=== PATIENT | female | born 1980 | race Caucasian/White ===

== ENCOUNTER 2021-06-14 14:43 | Emergency (ER) | payer OTHER ==
[~2021-06-14] VITALS: Ht 185.4 cm; Wt 77.1 kg
[2021-06-14] MEDS ORDERED: GABA100 PO (17:42)
[2021-06-14] MEDS ORDERED: MINIPRESS2 MG PO (17:43)
[2021-06-14] MEDS ORDERED: DESVENLAFAXINE100 MG PO (17:43)
[2021-06-14] MEDS ORDERED: OMEP20ER PO (17:43)
[2021-06-14] MEDS ORDERED: HYDHCL25 PO (17:43)
[2021-06-14] MEDS ORDERED: ABILIFY MYCITE10 M2 PO (17:44)
[2021-06-14] MEDS ORDERED: CYCL10 PO (17:44)
[2021-06-14] MEDS ORDERED: Bactrim Ds Tab1 EACH PO (18:33)
== END 2021-06-14 18:53 | disposition home or self-care (01) ==
LOC: ER 14:43
DX: M27.2 Inflammatory conditions of jaws (principal); Z79.899 Other long term (current) drug therapy; F17.290 Nicotine dependence, other tobacco product, uncomplicated
CPT/HCPCS: 10060; 99283-25; A9270

== ENCOUNTER 2021-11-24 13:25 | Inpatient (IN) | payer OTHER ==
[~2021-11-24] VITALS: Ht 185.4 cm; Wt 70.2 kg
[~2021-11-24 13:25] MED LIST: ABILIFY MYCITE10 M2 PO; Bactrim Ds Tab1 EACH PO; CYCL10 PO; DESVENLAFAXINE100 MG PO; GABA100 PO; HYDPAM100 PO; MINIPRESS2 MG PO; MULVITA PO; OMEP20ER PO; ONDA4 PO
[2021-11-24 14:13] LABS: BASOPHILS ABSOLUTE AUTO 0.07 K/mm3 (0.00-0.23); BASOPHILS PERCENT AUTO 1 % (0-2); EOSINOPHILS ABSOLUTE AUTO 0.01 K/mm3 (0.00-0.68); EOSINOPHILS PERCENT AUTO 0 % (0-6); Hematocrit 36.7 % (33.0-51.0); Hemoglobin 11.3 g/dL (11.5-16.0); IMMATURE GRAN ABSOLUTE AUTO 0.03 K/mm3 (0.00-0.10); IMMATURE GRAN PERCENT AUTO 0 % (0-1); LYMPHOCYTES ABSOLUTE AUTO 0.61 K/mm3 (0.84-5.20); LYMPHOCYTES PERCENT AUTO 6 % (21-46); MONOCYTES ABSOLUTE AUTO 0.74 K/mm3 (0.16-1.47); MONOCYTES PERCENT AUTO 8 % (4-13); Mean Corpuscular HGB 25.3 pg (26.0-34.0); Mean Corpuscular HGB Conc 30.8 g/dL (31.5-36.5); Mean Corpuscular Volume 82 fL (80-100); Mean Platelet Volume 9.8 fL (9.1-12.4); NEUTROPHILS ABSOLUTE AUTO 8.14 K/mm3 (1.96-9.15); NEUTROPHILS PERCENT AUTO 85 % (41-73); Platelet Count 416 K/mm3 (150-400); RDW Coefficient Variation 17.6 % (11.7-14.2); RDW Standard Deviation 52.8 fL (35.1-46.3); Red Blood Cell Count 4.47 M/mm3 (3.80-5.20)
[2021-11-24 14:17] LABS: Source, Urine Clean Catch
[2021-11-24 14:20] LABS: Appearance, Urine Hazy (Clear); Blood, Urine 1+ (Neg); Color, Urine Amber (P-Yellow); Glucose Qualitative, Urine Neg (Neg); Ketones, Urine 4+ (Neg); Leukocyte Esterase, Urine 1+ (Neg); Nitrite, Urine Neg (Neg); Protein, Urine 2+ (Neg); Specific Gravity, Urine 1.025 (1.003-1.022); Urobilinogen, Urine 3+ (Normal)
[2021-11-24 14:28] LABS: Bilirubin, Urine 1+ (Neg)
[2021-11-24 14:29] LABS: Squamous Epithelial Cells Few /hpf (Few)
[2021-11-24 14:30] LABS: Bacteria Mod /hpf; Hyaline Casts 0-2 /lpf (0-2)
[2021-11-24 14:34] LABS: Alanine Aminotransfer (ALT/SGP 129 U/L (12-78); Albumin, Blood 3.6 g/dL (3.4-5.0); Albumin/Globulin Ratio 0.9 (0.8-1.8); Alk Phos 142 U/L (50-136); Anion Gap 14 mmol/L (6-16); Aspartate Aminotrans (AST/SGOT 256 U/L (12-37); Bilirubin, Total 2.3 mg/dL (0.1-1.0); Blood Urea Nitrogen 6 mg/dL (8-24); Bun/Creatinine Ratio 14.2 (12.0-20.0); CO2, Blood 26 mmol/L (21-32); Calcium, Blood 9.1 mg/dL (8.5-10.1); Chloride, Blood 98 mmol/L (98-108); Creatinine, Blood 0.42 mg/dL (0.40-1.00); Globulin, Blood 3.9 g/dL (2.2-4.0); Glomerular Filtration Rate >60 (60-); Glucose, Blood 158 mg/dL (70-99); Potassium, Blood 3.4 mmol/L (3.5-5.5); Sodium, Blood 138 mmol/L (136-145); Total Protein, Blood 7.5 g/dL (6.4-8.2)
[2021-11-25 05:53] LABS: Alanine Aminotransfer (ALT/SGP 83 U/L (12-78); Albumin, Blood 2.6 g/dL (3.4-5.0); Albumin/Globulin Ratio 0.7 (0.8-1.8); Alk Phos 101 U/L (50-136); Anion Gap 8 mmol/L (6-16); Aspartate Aminotrans (AST/SGOT 114 U/L (12-37); Bilirubin, Total 1.6 mg/dL (0.1-1.0); Blood Urea Nitrogen 5 mg/dL (8-24); Bun/Creatinine Ratio 11.1 (12.0-20.0); CO2, Blood 29 mmol/L (21-32); Calcium, Blood 8.3 mg/dL (8.5-10.1); Chloride, Blood 101 mmol/L (98-108); Creatinine, Blood 0.45 mg/dL (0.40-1.00); Globulin, Blood 3.5 g/dL (2.2-4.0); Glomerular Filtration Rate >60 (60-); Glucose, Blood 89 mg/dL (70-99); Potassium, Blood 3.4 mmol/L (3.5-5.5); Sodium, Blood 138 mmol/L (136-145); Total Protein, Blood 6.1 g/dL (6.4-8.2); Triglycerides 67 mg/dL (30-160)
--- NOTE | 2021-11-25 06:18 | NUR ---
TRANSITION PROGRAM MANAGER SUMMARY/ ADMISSION PATIENT CAME FROM THE ED, ALERT AND ORIENTED. SHE WAS KEPT COMFORTABLE IN BED. ASSESSMENT DID NOT REVEAL ANY SKIN BREAKDOWN, SHE WAS HAVING PAIN BUT WAS GIVEN HER PRN MED, SHE WAS NAUSEOUS AND WAS VOMITING HER MEDS WERE ALSO ADMINISTERED. ASSESSMENTS CHARTED. SHE WAS KEPT COMFORTABLE, WILL CONTINUE TO MONITOR HER.
--- NOTE | 2021-11-25 17:03 | NUR ---
PT AOX4 AND COOPERATIVE OF CARE. PT DOING BETTER WITH PAIN CONTROL TREATED PER EMAR. PT INDEPENDENT IN ROOM AND WILL CALL APPROPRIATELY. CALL LIGHT WITHIN REACH WILL CONTINUE TO MONITOR.
--- NOTE | 2021-11-26 04:07 | NUR ---
SHIFT SUMMARY NO ACUTE CHANGES IN PT CONDITION. PT CONTINUES TO HAVE EPIGASTRIC PAIN, WHICH IS MEDICATED PER EMAR. PT ALSO COMPLAINS OF MILD NAUSEA, WHICH WAS ALSO MEDICATED PER EMAR. CWA BEING DONE EVERY 4 HOURS. LAST CWA WAS A 5. CALL LIGHT IS WITHIN REACH. PT WILL CONTINUE TO BE MONITORED.
[2021-11-26 06:47] LABS: Alanine Aminotransfer (ALT/SGP 71 U/L (12-78); Albumin, Blood 2.6 g/dL (3.4-5.0); Albumin/Globulin Ratio 0.9 (0.8-1.8); Alk Phos 95 U/L (50-136); Anion Gap 6 mmol/L (6-16); Aspartate Aminotrans (AST/SGOT 99 U/L (12-37); Bilirubin, Total 1.3 mg/dL (0.1-1.0); Blood Urea Nitrogen 1 mg/dL (8-24); Bun/Creatinine Ratio 2.2 (12.0-20.0); CO2, Blood 29 mmol/L (21-32); Calcium, Blood 8.4 mg/dL (8.5-10.1); Chloride, Blood 106 mmol/L (98-108); Creatinine, Blood 0.45 mg/dL (0.40-1.00); Globulin, Blood 2.9 g/dL (2.2-4.0); Glomerular Filtration Rate >60 (60-); Glucose, Blood 76 mg/dL (70-99); Potassium, Blood 3.7 mmol/L (3.5-5.5); Sodium, Blood 141 mmol/L (136-145); Total Protein, Blood 5.5 g/dL (6.4-8.2)
--- NOTE | 2021-11-26 18:18 | NUR ---
SHIFT SUMMARY PT ADMITTED FOR PANCREATITIS AND REPORTS FEELING MUCH BETTER THIS SHIFT. THIS AM SHE HAD AN INSTANCE OF PAIN/NAUSEA THAT HAS SINCE RESOLVED. MEDICATED X1 PER EMR. NEGATIVE FOR CIWA. HAS BEEN TOLERATING ORAL INTAKE WELL AND WILL POSSIBLY DC HOME TOMORROW. VSS. WILL REPORT TO GOMEZ NAVARRETE.
--- NOTE | 2021-11-27 04:14 | NUR ---
SHIFT SUMMARY NO ACUTE CHANGES IN PT CONDITION. MEDICATED FOR PAIN AND NAUSEA PER EMAR. PT STS SHE STARTED HER PERIOD AND WAS GIVEN SUPPLIES. PT EATING BETTER TODAY AND GIVEN SOME SNACK EARLIER IN THE EVENING. PT ON LOW FAT DIET. PT INDEPENDENT IN ROOM. IV R ARM. CALL LIGHT WITHIN REACH AND WILL CONTINUE TO MONITOR.
[2021-11-27] MEDS ORDERED: VENL150ER PO (10:32)
[2021-11-27] MEDS ORDERED: OXAYDO5 M1 PO (10:34)
[2021-11-27] MEDS ORDERED: Acetaminophen650 M1 PO (10:34)
[2021-11-27] MEDS ORDERED: PROM25 PO (10:34)
--- NOTE | 2021-11-27 11:02 | NUR ---
PT DISCHARGE DC INSTRUCTIONS REVIEWED WITH PT- PT VERB UNDERSTANDING OF MEDS, FOLLOW UP, DIET, ACTIVITY. NEW RX FAXED TO [facility] PER PT REQUEST.
--- NOTE | 2021-11-27 11:41 | NUR ---
DISCHARGE NOTE- PT WAS GIVEN DISCHARGE INSTRUCTIONS AND IV DC'D BY OUTSOLE LEVELERROSALBA DIMAS. PT ESCORTED OUT BY REGULATORY ADMINISTRATOR, PT DECLINED W/C AND WALKED OUT WITH STAFF GUIDANCE.
== END 2021-11-27 11:16 | disposition home or self-care (01) | DRG 440 ==
LOC: ER 13:25 → ERHOLD 18:11 → MEDS 21:10
PROVIDERS: Internal Medicine; Physician Assistant; ADMIT Hospitalist
DX: K85.20 Alcohol induced acute pancreatitis without necrosis or infection (principal); F10.20 Alcohol dependence, uncomplicated; F43.12 Post-traumatic stress disorder, chronic; F32.9 Major depressive disorder, single episode, unspecified; F41.9 Anxiety disorder, unspecified; E87.6 Hypokalemia; N83.202 Unspecified ovarian cyst, left side; K76.0 Fatty (change of) liver, not elsewhere classified; D50.9 Iron deficiency anemia, unspecified; K21.9 Gastro-esophageal reflux disease without esophagitis; Z79.899 Other long term (current) drug therapy; Z71.41 Alcohol abuse counseling and surveillance of alcoholic
CPT/HCPCS: 36415; 74176; 76705; 80053; 81001; 83690; 83735; 84478; 85025; 87086; 93005; 93010; 96374; 96375; 96376; 99285-25; A9270; C9113; J0780; J1170; J1200; J1650; J2405; J3480; J7030; J7120

== ENCOUNTER 2021-12-04 23:47 | Emergency (ER) | payer OTHER ==
[~2021-12-04] VITALS: Ht 185.4 cm; Wt 77.1 kg
[~2021-12-04 23:47] MED LIST changes: +Acetaminophen650 M1 PO; +OXAYDO5 M1 PO; +PROM25 PO; +VENL150ER PO
[2021-12-05] MEDS ORDERED: DESVENLAFAXINE100 M3 PO (00:25)
[2021-12-05 00:27] LABS: BASOPHILS ABSOLUTE AUTO 0.12 K/mm3 (0.00-0.23); BASOPHILS PERCENT AUTO 2 % (0-2); EOSINOPHILS ABSOLUTE AUTO 0.22 K/mm3 (0.00-0.68); EOSINOPHILS PERCENT AUTO 4 % (0-6); Hematocrit 36.8 % (33.0-51.0); Hemoglobin 11.3 g/dL (11.5-16.0); IMMATURE GRAN ABSOLUTE AUTO 0.03 K/mm3 (0.00-0.10); IMMATURE GRAN PERCENT AUTO 1 % (0-1); LYMPHOCYTES ABSOLUTE AUTO 1.37 K/mm3 (0.84-5.20); LYMPHOCYTES PERCENT AUTO 22 % (21-46); MONOCYTES PERCENT AUTO 11 % (4-13); Mean Corpuscular HGB 25.5 pg (26.0-34.0); Mean Corpuscular HGB Conc 30.7 g/dL (31.5-36.5); Mean Corpuscular Volume 83 fL (80-100); Mean Platelet Volume 10.2 fL (9.1-12.4); NEUTROPHILS PERCENT AUTO 62 % (41-73); Platelet Count 565 K/mm3 (150-400); RDW Coefficient Variation 17.1 % (11.7-14.2); RDW Standard Deviation 51.8 fL (35.1-46.3); Red Blood Cell Count 4.43 M/mm3 (3.80-5.20); White Blood Cell Count 6.34 K/mm3 (4.00-11.30)
[2021-12-05 01:08] LABS: Alanine Aminotransfer (ALT/SGP 120 U/L (12-78); Albumin, Blood 3.6 g/dL (3.4-5.0); Albumin/Globulin Ratio 0.9 (0.8-1.8); Alk Phos 156 U/L (50-136); Anion Gap 13 mmol/L (6-16); Aspartate Aminotrans (AST/SGOT 230 U/L (12-37); Bilirubin, Total 0.8 mg/dL (0.1-1.0); Blood Urea Nitrogen 4 mg/dL (8-24); Bun/Creatinine Ratio 8.5 (12.0-20.0); CO2, Blood 24 mmol/L (21-32); Calcium, Blood 9.2 mg/dL (8.5-10.1); Chloride, Blood 103 mmol/L (98-108); Creatinine, Blood 0.47 mg/dL (0.40-1.00); Globulin, Blood 3.9 g/dL (2.2-4.0); Glomerular Filtration Rate >60 (60-); Glucose, Blood 129 mg/dL (70-99); Potassium, Blood 3.5 mmol/L (3.5-5.5); Sodium, Blood 140 mmol/L (136-145); Total Protein, Blood 7.5 g/dL (6.4-8.2)
== END 2021-12-05 02:20 | disposition home or self-care (01) ==
LOC: ER 23:47
PROVIDERS: Physician Assistant
DX: K85.90 Acute pancreatitis without necrosis or infection, unspecified (principal); F10.10 Alcohol abuse, uncomplicated; Z79.899 Other long term (current) drug therapy; F17.290 Nicotine dependence, other tobacco product, uncomplicated
CPT/HCPCS: 36415; 80053; 83690; 85025; 96374; 96375; 99284; A9270; J0780; J1170; J1200; J2550; J7030

== ENCOUNTER 2021-12-15 11:02 | Inpatient (IN) | payer OTHER ==
[~2021-12-15] VITALS: Ht 185.4 cm; Wt 68.8 kg
[~2021-12-15 11:02] MED LIST changes: +DESVENLAFAXINE100 M3 PO
[2021-12-15 11:40] LABS: BASOPHILS ABSOLUTE AUTO 0.08 K/mm3 (0.00-0.23); BASOPHILS PERCENT AUTO 1 % (0-2); EOSINOPHILS ABSOLUTE AUTO 0.16 K/mm3 (0.00-0.68); EOSINOPHILS PERCENT AUTO 2 % (0-6); Hematocrit 37.8 % (33.0-51.0); Hemoglobin 11.5 g/dL (11.5-16.0); IMMATURE GRAN ABSOLUTE AUTO 0.02 K/mm3 (0.00-0.10); IMMATURE GRAN PERCENT AUTO 0 % (0-1); LYMPHOCYTES ABSOLUTE AUTO 1.06 K/mm3 (0.84-5.20); LYMPHOCYTES PERCENT AUTO 12 % (21-46); MONOCYTES ABSOLUTE AUTO 0.66 K/mm3 (0.16-1.47); MONOCYTES PERCENT AUTO 7 % (4-13); Mean Corpuscular HGB Conc 30.4 g/dL (31.5-36.5); Mean Corpuscular Volume 82 fL (80-100); Mean Platelet Volume 10.4 fL (9.1-12.4); NEUTROPHILS ABSOLUTE AUTO 7.19 K/mm3 (1.96-9.15); NEUTROPHILS PERCENT AUTO 78 % (41-73); Platelet Count 626 K/mm3 (150-400); RDW Coefficient Variation 15.9 % (11.7-14.2); RDW Standard Deviation 47.5 fL (35.1-46.3); White Blood Cell Count 9.17 K/mm3 (4.00-11.30)
[2021-12-15 11:58] LABS: Alanine Aminotransfer (ALT/SGP 69 U/L (12-78); Albumin, Blood 3.6 g/dL (3.4-5.0); Alk Phos 117 U/L (50-136); Anion Gap 7 mmol/L (6-16); Aspartate Aminotrans (AST/SGOT 90 U/L (12-37); Bilirubin, Total 0.9 mg/dL (0.1-1.0); Blood Urea Nitrogen 6 mg/dL (8-24); Bun/Creatinine Ratio 14.8 (12.0-20.0); CO2, Blood 29 mmol/L (21-32); Calcium, Blood 8.8 mg/dL (8.5-10.1); Chloride, Blood 104 mmol/L (98-108); Creatinine, Blood 0.41 mg/dL (0.40-1.00); Globulin, Blood 3.6 g/dL (2.2-4.0); Glomerular Filtration Rate >60 (60-); Glucose, Blood 166 mg/dL (70-99); Potassium, Blood 3.5 mmol/L (3.5-5.5); Sodium, Blood 140 mmol/L (136-145); Total Protein, Blood 7.2 g/dL (6.4-8.2)
--- NOTE | 2021-12-15 16:47 | NUR ---
SHIFT SUMMARY PATIENT ADMITTED FROM ER AT 1415. PATIENT MEDICATED X1 FOR ABDOMINAL PAIN. PATIENT MEDICATED X1 FOR NAUSEA. PATIENT DENIES SHORTNESS OF BREATH. PATIENT IS A SBA TO THE BATHROOM. PATIENT IS NPO. PATIENT 1430 CIWA WAS 11. PATIENT MEDICATED PER EMAR. PATIENTS MOM VISITED IN AFTERNOON. PATIENT HAS BEEN SLEEPING ON AND OFF SINCE ADMISSION. PATIENT IS PLEASANT AND COOPERATIVE [facility].
--- NOTE | 2021-12-16 05:10 | NUR ---
SHIFT SUMMARY 41 YR F ADMITTED ON 12/15/21 FOR ALCOHOLIC PANCREATITIS. FULL CODE. SHE IS CURRENTLY HAVING CIWA'S Q4H AND THE LAST TWO AT 2230 AND 0250 WERE 3 AND 5. PT C/O OF PAIN IN HER ABDOMEN AND SHE IS SHOWING SIGNS OF ALCOHOL WITHDRAWL. HER SPEECH IS BECOMING SLURRED BUT SHE IS ALERT AND ORIENTED X 4. SHE ALSO C/O NAUSEA AND IS BEING GIVEN ZOFRAN AND PHENEGRAN. SHE EXPRESSED THAT SHE WANTS TO GET BETTER AND THAT SHE KNOWS SHE "DID THIS TO MYSELF".
[2021-12-16 05:27] LABS: BASOPHILS ABSOLUTE AUTO 0.04 K/mm3 (0.00-0.23); BASOPHILS PERCENT AUTO 0 % (0-2); EOSINOPHILS ABSOLUTE AUTO 0.18 K/mm3 (0.00-0.68); EOSINOPHILS PERCENT AUTO 2 % (0-6); Hematocrit 31.9 % (33.0-51.0); Hemoglobin 9.5 g/dL (11.5-16.0); IMMATURE GRAN ABSOLUTE AUTO 0.03 K/mm3 (0.00-0.10); IMMATURE GRAN PERCENT AUTO 0 % (0-1); LYMPHOCYTES ABSOLUTE AUTO 0.67 K/mm3 (0.84-5.20); LYMPHOCYTES PERCENT AUTO 7 % (21-46); MONOCYTES ABSOLUTE AUTO 0.68 K/mm3 (0.16-1.47); MONOCYTES PERCENT AUTO 7 % (4-13); Mean Corpuscular HGB 24.9 pg (26.0-34.0); Mean Corpuscular HGB Conc 29.8 g/dL (31.5-36.5); Mean Corpuscular Volume 84 fL (80-100); Mean Platelet Volume 10.4 fL (9.1-12.4); NEUTROPHILS PERCENT AUTO 83 % (41-73); Platelet Count 387 K/mm3 (150-400); RDW Coefficient Variation 15.9 % (11.7-14.2); RDW Standard Deviation 48.2 fL (35.1-46.3); Red Blood Cell Count 3.82 M/mm3 (3.80-5.20)
[2021-12-16 05:50] LABS: Anion Gap 7 mmol/L (6-16); Blood Urea Nitrogen 4 mg/dL (8-24); CO2, Blood 27 mmol/L (21-32); Calcium, Blood 7.9 mg/dL (8.5-10.1); Chloride, Blood 106 mmol/L (98-108); Creatinine, Blood 0.33 mg/dL (0.40-1.00); Glomerular Filtration Rate >60 (60-); Glucose, Blood 120 mg/dL (70-99); Phosphorus, Blood 2.4 mg/dL (2.5-4.9); Sodium, Blood 140 mmol/L (136-145)
--- NOTE | 2021-12-16 18:14 | NUR ---
PT VERY SLEEPY T/O THE SHIFT, SHE IS A/O WHEN AWAKE, CIWA'S HAVE BEEN AROUND [address] SUERO ATAPRIL NOT TO BE GIVEN UNLESS CIWA'S >8. K-PHOS RIDER GIVEN THIS MORNING, NO ACUTE CHANGES NOTED THIS SHIFT, WILL CONTINUE TO MONITOR AND REPORT TO ONCOMING RN.
--- NOTE | 2021-12-17 01:20 | NUR ---
2214: PT WOKE UP FEELING NAUSEATED, VOMITED 100 MLS CLEAR. REPORTS FEELING ANXIOUS WELL. PHENEGRAN GIVEN VIA IV. PT ALSO STS THAT SHE'S IN PAIN 06/08, ABD REGION. 1MG DILAUDID PO GIVEN. PT REQUESTING FOR IV PAIN MED AT THIS TIME DUE TO N/V SX. CALLED AND SPOKE AIDE GUIDO AT 75ML/HR ORDERED AND CHANGED DILAUDID TO FENTANYL 25-50MCG Q4 PRN. NEW IV WAS PLACED WELL ON LEFT FOREARM, DC IV ON LEFT AC DUE TO REDNESS AND PAIN. CALL LIGHT WITHIN REACH.
--- NOTE | 2021-12-17 01:25 | NUR ---
0015: PT STILL FEELS NAUSEATED. ADMINSTERED ZOFRAN VIA IV. NO VOMITING AT THIS TIME. PT WENT BACK TO SLEEP AFTER. CALL LIGHT WITHIN REACH.
--- NOTE | 2021-12-17 03:45 | NUR ---
SHIFT SUMMARY PT ADMITTED FOR ALCO PANCREATITIS. PT REPORTS NAUSEA AND VOMITED ONCE T/O SHIFT. SHE ALSO C/O OF ABD PAIN. NAUSEA MANAGED WITH PHENEGRAN AND ZOFRAN. PAIN MANAGED WITH DILAUDID AT THE BEGINNING OF SHIFT BUT BECAUSE PT WAS VOMITING, SHE REQUESTED AN IV PAIN MED. CALLED DR. NULL, DILAUDID WAS CHANGED TO FENTANYL AND AN ORDER OF NS 75MLS/HR X1. PT AOX4. NEW IV WAS ALSO PLACED ON L FOREARM, DC IV ON L AC DUE TO PAIN AND REDNESS. CALL LIGHT WITHIN REACH. WILL PROVIDE REPORT TO ONCOMING NURSE.
[2021-12-17 05:32] LABS: BASOPHILS ABSOLUTE AUTO 0.05 K/mm3 (0.00-0.23); BASOPHILS PERCENT AUTO 1 % (0-2); EOSINOPHILS ABSOLUTE AUTO 0.36 K/mm3 (0.00-0.68); EOSINOPHILS PERCENT AUTO 4 % (0-6); Hemoglobin 9.2 g/dL (11.5-16.0); IMMATURE GRAN ABSOLUTE AUTO 0.05 K/mm3 (0.00-0.10); IMMATURE GRAN PERCENT AUTO 1 % (0-1); LYMPHOCYTES ABSOLUTE AUTO 1.26 K/mm3 (0.84-5.20); LYMPHOCYTES PERCENT AUTO 12 % (21-46); MONOCYTES ABSOLUTE AUTO 0.85 K/mm3 (0.16-1.47); MONOCYTES PERCENT AUTO 8 % (4-13); Mean Corpuscular HGB 25.4 pg (26.0-34.0); Mean Corpuscular HGB Conc 29.7 g/dL (31.5-36.5); Mean Corpuscular Volume 86 fL (80-100); Mean Platelet Volume 11.1 fL (9.1-12.4); NEUTROPHILS ABSOLUTE AUTO 7.85 K/mm3 (1.96-9.15); NEUTROPHILS PERCENT AUTO 75 % (41-73); Platelet Count 398 K/mm3 (150-400); RDW Coefficient Variation 16.1 % (11.7-14.2); RDW Standard Deviation 49.6 fL (35.1-46.3); Red Blood Cell Count 3.62 M/mm3 (3.80-5.20); White Blood Cell Count 10.42 K/mm3 (4.00-11.30)
[2021-12-17 05:57] LABS: Alanine Aminotransfer (ALT/SGP 37 U/L (12-78); Albumin, Blood 2.6 g/dL (3.4-5.0); Albumin/Globulin Ratio 0.9 (0.8-1.8); Alk Phos 97 U/L (50-136); Anion Gap 7 mmol/L (6-16); Aspartate Aminotrans (AST/SGOT 50 U/L (12-37); Bilirubin, Total 1.3 mg/dL (0.1-1.0); Blood Urea Nitrogen 3 mg/dL (8-24); CO2, Blood 30 mmol/L (21-32); Calcium, Blood 8.1 mg/dL (8.5-10.1); Chloride, Blood 102 mmol/L (98-108); Creatinine, Blood 0.43 mg/dL (0.40-1.00); Glomerular Filtration Rate >60 (60-); Glucose, Blood 92 mg/dL (70-99); Phosphorus, Blood 2.9 mg/dL (2.5-4.9); Potassium, Blood 3.6 mmol/L (3.5-5.5); Sodium, Blood 139 mmol/L (136-145); Total Protein, Blood 5.6 g/dL (6.4-8.2)
--- NOTE | 2021-12-17 18:28 | NUR ---
PT DIET ADVANCED TO CLEAR LIQUIDS, TOLERATING WITH NAUSEA MEDS, DIET CAN BE ADVANCED TOLERATED TO LOW FAT, LOW FIBER. NO ACUTE CHANGES NOTED THIS SHIFT, WILL CONTINUE TO MONITOR AND REPORT TO ONCOMING RN.
[2021-12-18 06:03] LABS: Alanine Aminotransfer (ALT/SGP 36 U/L (12-78); Albumin, Blood 2.6 g/dL (3.4-5.0); Albumin/Globulin Ratio 0.9 (0.8-1.8); Alk Phos 95 U/L (50-136); Anion Gap 5 mmol/L (6-16); Aspartate Aminotrans (AST/SGOT 55 U/L (12-37); Bilirubin, Total 0.8 mg/dL (0.1-1.0); Blood Urea Nitrogen 3 mg/dL (8-24); Bun/Creatinine Ratio 7.5 (12.0-20.0); CO2, Blood 28 mmol/L (21-32); Calcium, Blood 7.7 mg/dL (8.5-10.1); Chloride, Blood 107 mmol/L (98-108); Glomerular Filtration Rate >60 (60-); Glucose, Blood 87 mg/dL (70-99); Potassium, Blood 3.3 mmol/L (3.5-5.5); Sodium, Blood 140 mmol/L (136-145); Total Protein, Blood 5.6 g/dL (6.4-8.2)
--- NOTE | 2021-12-18 06:22 | NUR ---
SHIFT SUMMARY PT CONTINUES TO BE PAINFUL EVEN AFTER GIVEN MEDICATION. CALLED DR AND GOT ORDER FOR DILAUDID Q 6 IV FOR PAIN. MEDICATED SEVERAL TIMES PER EMAR. PT STS AFTER GETTING COMBINATION OF PAIN MEDICATION AND NAUSEA MEDICATION THAT SHE IS NOT IN SO MUCH PAIN. PT HAS FLUIDS RUNNING AT 75 HR. CALL LIGHT WITHIN REACH.
[2021-12-18] MEDS ORDERED: HYDROCODONE-AC1 EA10 PO (16:31)
[2021-12-18] MEDS ORDERED: ONDA4ODT MM (16:31)
[2021-12-18] MEDS ORDERED: POTA10T PO (16:32)
--- NOTE | 2021-12-18 17:57 | NUR ---
DISCHARGE INSTRUCTIONS COMPLETED AND DISCUSSED WITH PT EXPRESSING UNDERSTANDING. REPORTED LAST DOSE OF PAIN MED MOST EFFECTIVE WITH PAIN AFTER LFA IV NOTED TO BE INFILTRATED WITH REDNESS AND SWELLING. DID HAVE LESS NAUSEA AFTER EATING A SOLID LUNCH. SCRIPTS FAXED TO [facility]. TO [facility] VIA W/C. RHONDA FOUND IN LOCKED DRAWER AFTER SHE LEFT. CALLED HOME PHONE AND LEFT A MESSAGE.
== END 2021-12-18 17:35 | disposition home or self-care (01) | DRG 439 ==
LOC: ER 11:02 → ERHOLD 13:22 → MEDS 14:03
PROVIDERS: Emergency Medicine; Student in an Organized Health Care Education/Training Program; ADMIT Hospitalist
PROC: HZ2ZZZZ Detoxification Services for Substance Abuse Treatment (ICD-10-PCS; principal; 2021-12-15)
DX: K85.20 Alcohol induced acute pancreatitis without necrosis or infection (principal); F10.239 Alcohol dependence with withdrawal, unspecified; E87.6 Hypokalemia; E83.39 Other disorders of phosphorus metabolism; F12.90 Cannabis use, unspecified, uncomplicated; D50.9 Iron deficiency anemia, unspecified; K21.9 Gastro-esophageal reflux disease without esophagitis; F41.1 Generalized anxiety disorder; F32.9 Major depressive disorder, single episode, unspecified; Z28.21 Immunization not carried out because of patient refusal; F17.290 Nicotine dependence, other tobacco product, uncomplicated; Z79.899 Other long term (current) drug therapy
CPT/HCPCS: 36415; 80048; 80053; 83690; 83735; 84100; 85025; 96361; 96374; 96375; 99285-25; A9270; J1170; J1200; J1650; J1885; J2060; J2405; J2550; J3010; J3411; J3475; J7030; J7042; J7060

== ENCOUNTER 2022-03-25 14:22 | Emergency (ER) | payer OTHER ==
[~2022-03-25] VITALS: Ht 185.4 cm; Wt 65.8 kg
[~2022-03-25 14:22] MED LIST changes: +HYDROCODONE-AC1 EA10 PO; +ONDA4ODT MM; +POTA10T PO
[2022-03-25 15:41] LABS: BASOPHILS ABSOLUTE AUTO 0.04 K/mm3 (0.00-0.23); BASOPHILS PERCENT AUTO 0 % (0-2); EOSINOPHILS PERCENT AUTO 2 % (0-6); Hematocrit 32.6 % (33.0-51.0); Hemoglobin 9.2 g/dL (11.5-16.0); IMMATURE GRAN ABSOLUTE AUTO 0.04 K/mm3 (0.00-0.10); IMMATURE GRAN PERCENT AUTO 0 % (0-1); LYMPHOCYTES ABSOLUTE AUTO 0.98 K/mm3 (0.84-5.20); LYMPHOCYTES PERCENT AUTO 9 % (21-46); MONOCYTES ABSOLUTE AUTO 0.47 K/mm3 (0.16-1.47); MONOCYTES PERCENT AUTO 4 % (4-13); Mean Corpuscular HGB 20.7 pg (26.0-34.0); Mean Corpuscular HGB Conc 28.2 g/dL (31.5-36.5); Mean Corpuscular Volume 73 fL (80-100); NEUTROPHILS ABSOLUTE AUTO 8.99 K/mm3 (1.96-9.15); NEUTROPHILS PERCENT AUTO 84 % (41-73); Platelet Count 385 K/mm3 (150-400); RDW Coefficient Variation 17.6 % (11.7-14.2); RDW Standard Deviation 44.5 fL (35.1-46.3); Red Blood Cell Count 4.45 M/mm3 (3.80-5.20); White Blood Cell Count 10.72 K/mm3 (4.00-11.30)
[2022-03-25 15:43] LABS: Alanine Aminotransfer (ALT/SGP 26 U/L (12-78); Albumin, Blood 3.9 g/dL (3.4-5.0); Albumin/Globulin Ratio 0.9 (0.8-1.8); Alk Phos 82 U/L (50-136); Anion Gap 8 mmol/L (6-16); Aspartate Aminotrans (AST/SGOT 24 U/L (12-37); Blood Urea Nitrogen 6 mg/dL (8-24); Bun/Creatinine Ratio 12.2 (12.0-20.0); CO2, Blood 26 mmol/L (21-32); Calcium, Blood 9.2 mg/dL (8.5-10.1); Chloride, Blood 104 mmol/L (98-108); Creatinine, Blood 0.49 mg/dL (0.40-1.00); Globulin, Blood 4.4 g/dL (2.2-4.0); Glomerular Filtration Rate >60 (60-); Glucose, Blood 131 mg/dL (70-99); Potassium, Blood 3.6 mmol/L (3.5-5.5); Sodium, Blood 138 mmol/L (136-145); Total Protein, Blood 8.3 g/dL (6.4-8.2)
[2022-03-25 16:33] LABS: Source, Urine Clean Catch
[2022-03-25 16:38] LABS: Appearance, Urine Hazy (Clear); Blood, Urine Neg (Neg); Color, Urine Amber (P-Yellow); Glucose Qualitative, Urine Neg (Neg); Ketones, Urine 3+ (Neg); Leukocyte Esterase, Urine 1+ (Neg); Nitrite, Urine Neg (Neg); Protein, Urine 2+ (Neg); Specific Gravity, Urine 1.025 (1.003-1.022); Urobilinogen, Urine 3+ (Normal)
[2022-03-25] MEDS ORDERED: TRAZ150T57 PO (16:39)
[2022-03-25 17:48] LABS: Bilirubin, Urine 1+ (Neg)
[2022-03-25 17:53] LABS: Bacteria Many /hpf; Mucus Mod (0-Heavy); Red Blood Cells, Urine 0-2 /hpf (0-2); Squamous Epithelial Cells Many /hpf (Few)
[2022-03-25 17:54] LABS: Amorphous Light (0-Heavy); Hyaline Casts 0-2 /lpf (0-2)
[2022-03-25] MEDS ORDERED: ONDA4ODT MM (19:40)
[2022-03-25] MEDS ORDERED: Percocet 5-3251 EACH PO (19:40)
[2022-03-25] MEDS ORDERED: Phenergan25 M1 PO (19:48)
== END 2022-03-25 20:09 | disposition home or self-care (01) ==
LOC: ER 14:22
PROVIDERS: Physician Assistant
DX: K85.90 Acute pancreatitis without necrosis or infection, unspecified (principal); D64.9 Anemia, unspecified; F17.290 Nicotine dependence, other tobacco product, uncomplicated
CPT/HCPCS: 36415; 80053; 81001; 81025; 83690; 85025; A9270; J1170; J1885; J2405; J7030

== ENCOUNTER 2022-04-04 09:20 | Emergency (ER) | payer OTHER ==
[~2022-04-04] VITALS: Ht 185.4 cm; Wt 65.8 kg
[~2022-04-04 09:20] MED LIST changes: +Percocet 5-3251 EACH PO; +Phenergan25 M1 PO; +TRAZ150T57 PO
[2022-04-04 11:19] LABS: BASOPHILS ABSOLUTE AUTO 0.05 K/mm3 (0.00-0.23); BASOPHILS PERCENT AUTO 1 % (0-2); EOSINOPHILS ABSOLUTE AUTO 0.37 K/mm3 (0.00-0.68); EOSINOPHILS PERCENT AUTO 4 % (0-6); Hematocrit 28.4 % (33.0-51.0); IMMATURE GRAN ABSOLUTE AUTO 0.02 K/mm3 (0.00-0.10); IMMATURE GRAN PERCENT AUTO 0 % (0-1); LYMPHOCYTES ABSOLUTE AUTO 1.14 K/mm3 (0.84-5.20); LYMPHOCYTES PERCENT AUTO 11 % (21-46); MONOCYTES ABSOLUTE AUTO 0.83 K/mm3 (0.16-1.47); MONOCYTES PERCENT AUTO 8 % (4-13); Mean Corpuscular HGB 20.5 pg (26.0-34.0); Mean Corpuscular HGB Conc 28.2 g/dL (31.5-36.5); Mean Corpuscular Volume 73 fL (80-100); Mean Platelet Volume 10.8 fL (9.1-12.4); NEUTROPHILS ABSOLUTE AUTO 7.57 K/mm3 (1.96-9.15); NEUTROPHILS PERCENT AUTO 76 % (41-73); Platelet Count 488 K/mm3 (150-400); RDW Coefficient Variation 18.3 % (11.7-14.2); RDW Standard Deviation 46.7 fL (35.1-46.3); White Blood Cell Count 9.98 K/mm3 (4.00-11.30)
[2022-04-04 11:42] LABS: Alanine Aminotransfer (ALT/SGP 14 U/L (12-78); Albumin, Blood 3.3 g/dL (3.4-5.0); Albumin/Globulin Ratio 0.8 (0.8-1.8); Alk Phos 76 U/L (50-136); Anion Gap 5 mmol/L (6-16); Aspartate Aminotrans (AST/SGOT 17 U/L (12-37); Bilirubin, Total 0.7 mg/dL (0.1-1.0); Blood Urea Nitrogen 6 mg/dL (8-24); Bun/Creatinine Ratio 14.5 (12.0-20.0); CO2, Blood 27 mmol/L (21-32); Chloride, Blood 101 mmol/L (98-108); Creatinine, Blood 0.42 mg/dL (0.40-1.00); Globulin, Blood 3.9 g/dL (2.2-4.0); Glomerular Filtration Rate >60 (60-); Glucose, Blood 109 mg/dL (70-99); Magnesium, Blood 2.1 mg/dL (1.6-2.4); Potassium, Blood 4.3 mmol/L (3.5-5.5); Sodium, Blood 133 mmol/L (136-145); Total Protein, Blood 7.2 g/dL (6.4-8.2)
[2022-04-04] MEDS ORDERED: PHENERGAN25 MG PR (13:15)
[2022-04-04] MEDS ORDERED: ONDA4ODT SL (13:15)
[2022-04-04] MEDS ORDERED: Percocet 5-3251 EACH PO (13:15)
== END 2022-04-04 13:46 | disposition home or self-care (01) ==
LOC: ER 09:20
PROVIDERS: Physician Assistant
DX: K85.90 Acute pancreatitis without necrosis or infection, unspecified (principal); N83.202 Unspecified ovarian cyst, left side; N83.201 Unspecified ovarian cyst, right side; K59.00 Constipation, unspecified; Z79.899 Other long term (current) drug therapy; Z87.891 Personal history of nicotine dependence
CPT/HCPCS: 36415; 74177; 80053; 83690; 83735; 85025; J1170; J1790; J1885; J2405; J7120; Q9967

== ENCOUNTER 2022-04-23 05:28 | Inpatient (IN) | payer OTHER ==
[~2022-04-23] VITALS: Ht 185.4 cm; Wt 65.8 kg
[~2022-04-23 05:28] MED LIST changes: +ONDA4ODT SL; +PHENERGAN25 MG PR
[2022-04-23 06:12] LABS: BASOPHILS ABSOLUTE AUTO 0.08 K/mm3 (0.00-0.23); BASOPHILS PERCENT AUTO 0 % (0-2); EOSINOPHILS ABSOLUTE AUTO 1.16 K/mm3 (0.00-0.68); EOSINOPHILS PERCENT AUTO 6 % (0-6); Hematocrit 28.9 % (33.0-51.0); Hemoglobin 8.1 g/dL (11.5-16.0); IMMATURE GRAN PERCENT AUTO 1 % (0-1); LYMPHOCYTES PERCENT AUTO 10 % (21-46); MONOCYTES ABSOLUTE AUTO 1.43 K/mm3 (0.16-1.47); MONOCYTES PERCENT AUTO 7 % (4-13); Mean Corpuscular Volume 72 fL (80-100); Mean Platelet Volume 10.7 fL (9.1-12.4); NEUTROPHILS ABSOLUTE AUTO 14.74 K/mm3 (1.96-9.15); NEUTROPHILS PERCENT AUTO 76 % (41-73); Platelet Count 421 K/mm3 (150-400); RDW Coefficient Variation 18.4 % (11.7-14.2); RDW Standard Deviation 46.8 fL (35.1-46.3); Red Blood Cell Count 4.04 M/mm3 (3.80-5.20); White Blood Cell Count 19.51 K/mm3 (4.00-11.30)
[2022-04-23 06:26] LABS: Albumin, Blood 3.2 g/dL (3.4-5.0); Albumin/Globulin Ratio 0.9 (0.8-1.8); Bilirubin, Total 0.9 mg/dL (0.1-1.0); Bun/Creatinine Ratio 23.2 (12.0-20.0); Calcium, Blood 8.5 mg/dL (8.5-10.1); Creatinine, Blood 0.47 mg/dL (0.40-1.00); Globulin, Blood 3.7 g/dL (2.2-4.0); Potassium, Blood 3.7 mmol/L (3.5-5.5); Total Protein, Blood 6.9 g/dL (6.4-8.2)
[2022-04-23] MEDS ORDERED: GABAPENTIN600 MG PO (07:08)
[2022-04-23] MEDS ORDERED: OXYC5 PO (07:08)
--- NOTE | 2022-04-23 17:24 | NUR ---
DAYSHIFT SUMMARY Pt admitted for pancreatitis, arrived to medical unit at 1130. Pt N/V, severe abdominal pain. NPO w/ sips/ice chips ok per MD. Pt vomiting, stated that zofran was given & uneffective for her. Gave IV Reglan & Fentynal for N/V/pain. PRNs uneffective. Pt crying & vomiting, requested alternative for N/V. PRN oxycodone given, pt vomited after receiving dose. PRN IV Phenergan & Fentynal given, PRNs effective for N/V/pain control. D5W/KCL infusing in right/AC. PRNs given Q3-4H, pts pain controlled at this time. Vitals stable.
[2022-04-24 04:53] LABS: BASOPHILS ABSOLUTE AUTO 0.05 K/mm3 (0.00-0.23); BASOPHILS PERCENT AUTO 0 % (0-2); EOSINOPHILS ABSOLUTE AUTO 0.85 K/mm3 (0.00-0.68); EOSINOPHILS PERCENT AUTO 7 % (0-6); Hematocrit 24.3 % (33.0-51.0); Hemoglobin 6.7 g/dL (11.5-16.0); IMMATURE GRAN ABSOLUTE AUTO 0.02 K/mm3 (0.00-0.10); IMMATURE GRAN PERCENT AUTO 0 % (0-1); LYMPHOCYTES ABSOLUTE AUTO 1.92 K/mm3 (0.84-5.20); LYMPHOCYTES PERCENT AUTO 15 % (21-46); MONOCYTES ABSOLUTE AUTO 1.07 K/mm3 (0.16-1.47); MONOCYTES PERCENT AUTO 9 % (4-13); Mean Corpuscular HGB 19.9 pg (26.0-34.0); Mean Corpuscular HGB Conc 27.6 g/dL (31.5-36.5); Mean Corpuscular Volume 72 fL (80-100); Mean Platelet Volume 10.7 fL (9.1-12.4); NEUTROPHILS ABSOLUTE AUTO 8.67 K/mm3 (1.96-9.15); NEUTROPHILS PERCENT AUTO 69 % (41-73); Platelet Count 319 K/mm3 (150-400); RDW Coefficient Variation 18.7 % (11.7-14.2); Red Blood Cell Count 3.36 M/mm3 (3.80-5.20); White Blood Cell Count 12.58 K/mm3 (4.00-11.30)
[2022-04-24 05:15] LABS: Albumin, Blood 2.5 g/dL (3.4-5.0); Albumin/Globulin Ratio 0.8 (0.8-1.8); Bilirubin, Total 0.9 mg/dL (0.1-1.0); Bun/Creatinine Ratio 13.2 (12.0-20.0); Calcium, Blood 7.7 mg/dL (8.5-10.1); Creatinine, Blood 0.45 mg/dL (0.40-1.00); Globulin, Blood 3.1 g/dL (2.2-4.0); Potassium, Blood 3.9 mmol/L (3.5-5.5); Total Protein, Blood 5.6 g/dL (6.4-8.2)
--- NOTE | 2022-04-24 05:43 | NUR ---
41 year old Female with acute on chronic pancreatitis admitted yesterday with N V abd pain 07/09 that is persistant & radiated thru to upper back. Medicated multiple times for pain & nausea prevention. She has kpad & finds some relief with that. Vomiting & acute pain this AM PT has phenergan 12.5 mg & zofran with helpful effect & 50 mcg fentanyl with some short lived relief so oxycodone 5 mg po given. PT says she prefers dilaudid for pain control. NPO except ice chips & sips water.
[2022-04-24 14:18] LABS: Hematocrit 29.1 % (33.0-51.0); Hemoglobin 8.4 g/dL (11.5-16.0)
--- NOTE | 2022-04-24 18:24 | NUR ---
DAYSHIFT SUMMARY at bedside this am, pt reported constipation, hard stools, and bleeding/possible hemorroids. MD ordered guiac stool & miralax daily. This morning RBC 3.3, Hgb 6.7, Hct 24.3, MD ordered 1 unit PRBCs. Blood transfusion consent form signed & witnessed by this RN. Transfused blood, no s/sx of reaction ntoed, vitals stable. Pt reported feeling better, less fatigued after transfusion completed. Ferric gluconate IV administred, and 1 bag of Thiamine/Magnesium fluids. LR now running continous. Second IV placed in right/wrist. Pt reported poor pain control with IV fentynal. DC'd IV fentynal & Oxycodone PO & ordered IV Diluadid. Pain control effective this shift. Pt drying heaving, vomting water, no blood observed. IV phenergan & Reglan given this shift, PRNs effective. Vitals stable, slight temp 99 this shift.
--- NOTE | 2022-04-25 04:13 | NUR ---
patient with VSS on RA overnight. Patient up ad rigo in room. VOiding QS. Patient painful and nauseated overnight. See MAR. Patient understands her NPO status. Primary IVF running at 150cc/hr. patent had multiple questions about her tests and labs. All questions answered.
[2022-04-25 05:53] LABS: BASOPHILS ABSOLUTE AUTO 0.05 K/mm3 (0.00-0.23); BASOPHILS PERCENT AUTO 1 % (0-2); EOSINOPHILS ABSOLUTE AUTO 0.84 K/mm3 (0.00-0.68); EOSINOPHILS PERCENT AUTO 9 % (0-6); Hematocrit 24.4 % (33.0-51.0); Hemoglobin 6.9 g/dL (11.5-16.0); IMMATURE GRAN ABSOLUTE AUTO 0.03 K/mm3 (0.00-0.10); IMMATURE GRAN PERCENT AUTO 0 % (0-1); LYMPHOCYTES ABSOLUTE AUTO 1.09 K/mm3 (0.84-5.20); LYMPHOCYTES PERCENT AUTO 12 % (21-46); MONOCYTES ABSOLUTE AUTO 0.77 K/mm3 (0.16-1.47); MONOCYTES PERCENT AUTO 8 % (4-13); Mean Corpuscular HGB 20.5 pg (26.0-34.0); Mean Corpuscular HGB Conc 28.3 g/dL (31.5-36.5); Mean Corpuscular Volume 72 fL (80-100); Mean Platelet Volume 11.2 fL (9.1-12.4); NEUTROPHILS ABSOLUTE AUTO 6.34 K/mm3 (1.96-9.15); NEUTROPHILS PERCENT AUTO 70 % (41-73); Platelet Count 283 K/mm3 (150-400); RDW Coefficient Variation 18.8 % (11.7-14.2); RDW Standard Deviation 47.8 fL (35.1-46.3); Red Blood Cell Count 3.37 M/mm3 (3.80-5.20); White Blood Cell Count 9.12 K/mm3 (4.00-11.30)
[2022-04-25 06:15] LABS: Calcium, Blood 7.6 mg/dL (8.5-10.1); Creatinine, Blood 0.43 mg/dL (0.40-1.00); Potassium, Blood 3.5 mmol/L (3.5-5.5)
[2022-04-25 08:46] LABS: Stool Occult Blood Guaiac 1 Neg (Neg)
--- NOTE | 2022-04-25 17:08 | NUR ---
DAYSHIFT SUMMARY Continuing pain managment & nausea control. Dilaudid, phenergen, zofran effective for pain management. Pt had one episode of dry heaving this am. Advanced diet to clear liquids, tolerating intake. 1 unit PRBCs transfused this morning, as well as IV Iron, Thiamine/Magnesium IV fluids. Pt reporting LUQ pain, radiates to lower back. ABD distended, tender. Pt reported loose stool this am, refused miralax. Vitals stable.
--- NOTE | 2022-04-26 04:33 | NUR ---
patient with VSS on RA overnight. Up independently in room. Voiding QS. C/O moderate amounts of mid abdomen pain overnight. Minimal nausea.. see MAR. Patient concerned about her low HGB and asking multiple questions about why it could be low. Discussed high iron diet and her negative for blood stool sample.
[2022-04-26 05:46] LABS: Hematocrit 27.2 % (33.0-51.0); Hemoglobin 7.8 g/dL (11.5-16.0)
--- NOTE | 2022-04-26 17:05 | NUR ---
PATIENTS MAIN CONCERN WAS PAIN- ABDOMEN TO BACK. WITH THE PAIN, NAUSEA WAS PRESENT. PATIENT RECEIVED IV DILAUDID THIS AM. rOXICODONE WAS GIVEN IN THE AFTERNOON, AND THEN THE PATIENT REQUESTED IV DILAUDID BE ADMINISTERED WHEN IT COULD. ORDERS WERE ADJUSTED TODAY, SPACING IV DILAUDID OUT TO Q 6 HOURS. THE PAIN MEDICATION APPEARS EFFECTIVE AND PATIENT SLEEPS AFTERWARD BUT REQUESTS NEXT DOSE SOON SHE CAN. PHENAGREN AND ZOFRAN WERE BOTH USED TO TREAT NAUSEA TODAY. LATEST HGB 7.8, HCT 27.2. LACTATED RINGERS STILL RUNNING-NO DOSE ADJUSTMENT. PATIENT RESTING COMFORTABLY AFTER LATEST PAIN MED ADMINISTRATION.
--- NOTE | 2022-04-27 04:03 | NUR ---
Patient with VSS on RA overnight. Moderate c/o pain at beginning of shift but sleeping thoughout the main portion of the night. IVF infusing. Paitient still with minimal PO intake. Voiding QS. Up independently in the room. Anticipate home qwhen pain managed and PO intake improves.
[2022-04-27 05:51] LABS: Albumin, Blood 2.5 g/dL (3.4-5.0); Anion Gap 8 mmol/L (6-16); Blood Urea Nitrogen 2 mg/dL (8-24); Bun/Creatinine Ratio 5.1 (12.0-20.0); CO2, Blood 25 mmol/L (21-32); Calcium, Blood 8.5 mg/dL (8.5-10.1); Chloride, Blood 107 mmol/L (98-108); Glomerular Filtration Rate 127 (60-); Glucose, Blood 84 mg/dL (70-99); Phosphorus, Blood 4.1 mg/dL (2.5-4.9); Potassium, Blood 3.6 mmol/L (3.5-5.5); Sodium, Blood 140 mmol/L (136-145)
[2022-04-27 13:55] LABS: Hematocrit 31.6 % (33.0-51.0); Hemoglobin 8.9 g/dL (11.5-16.0)
--- NOTE | 2022-04-27 18:29 | NUR ---
PAIN LEVEL IMPROVED. PT ABLE TO EAT SOME OF LUNCH AND DINNER. ABLE TO DRINK PECAN ENSURE AND EAT SOME SOUP SO FAR TONIGHT. VISITOR IN AT THIS TIME.
--- NOTE | 2022-04-27 18:42 | NUR ---
SHIFT SUMMARY PT SLEEPING AT START OF SHIFT. TOO SLEEPY AND NOT WANTING TO EAT BREAKFAST WHEN IT ARRIVED. PT FINALLY WOKE FOR LUNCH AND ABLE TO EAT SOME BOTH LUNCH AND DINNER. PT REPORTED THAT SHE IS INDEPENDENT TO THR BATHRM. CALLED FOR PAIN AND NAUSEA MEDICATION NEEDED; SEE EMAR. DR SUERO AND DR HACKETT BOTH IN TO SEE PT AND DISCUSSED PLAN OF CARE. MEDS ADJUSTED SOME AND SEEM TO BE EFFECTIVE. PT DOING A LITTLE BETTER TODAY. VISITOR TO THIS AFTERNOON. CURRENTLY SITTING UP IN BED WATCHING TV AND EATING. CALL LT IN REACH.
--- NOTE | 2022-04-27 18:59 | NUR ---
PT C/O PAIN AND NAUSEA THROUGHOUT SHIFT. PT WAS GIVEN PO PAIN MEDICATION PER EMAR PROTOCOL. PT IV PAIN MEDICATION WAS DC'D AND PT IV ZOFRAN WAS INCREASED TO 8MG. PT AMBULATING TO BATHROOM INDEPENDANTLY. PT HAS INCREASED APPETITE FOR LUNCH AND DINNER. PT PAIN AND NAUSEA MANAGED THROUGHOUT THE SHIFT. PT RESTING IN BED WITH CALL LIGHT WITHIN REACH.
--- NOTE | 2022-04-28 04:38 | NUR ---
Patient with VSS on RA overnight. Patient feeling better. Up walking in the [place]. Showered. Minimal c/o pain or nausea. See MAR. Still with poor PO intake. patient states she is scared to eat due to previous pain and nausea. Patient will DC to home when medically stable.
[2022-04-28 05:30] LABS: Hematocrit 27.2 % (33.0-51.0); Hemoglobin 7.9 g/dL (11.5-16.0)
[2022-04-28] MEDS ORDERED: FERSU300 PO (11:44)
--- NOTE | 2022-04-28 14:08 | NUR ---
No acute changes to patient status, tolerating regular diet. Pain managed with PO pain meds. MD assessed patient at bedside, and ordered discharge home today. IV in right ac removed in previous shift, swollen/lump noted on side of right arm. MD aware, and intructed to apply warm compress to site. Discharge teaching provided, pt verbalized understanding.
== END 2022-04-28 13:14 | disposition home or self-care (01) | DRG 439 ==
LOC: ER 05:28 → MEDS 09:31
PROVIDERS: Emergency Medicine; Internal Medicine; Nurse Practitioner Acute Care; Student in an Organized Health Care Education/Training Program; ADMIT Internal Medicine
PROC: HZ2ZZZZ Detoxification Services for Substance Abuse Treatment (ICD-10-PCS; 2022-04-23)
PROC: 30233N1 Transfusion of Nonautologous Red Blood Cells into Peripheral Vein, Percutaneous Approach (ICD-10-PCS; principal; 2022-04-24)
DX: K85.20 Alcohol induced acute pancreatitis without necrosis or infection (principal); R65.10 Systemic inflammatory response syndrome (SIRS) of non-infectious origin without acute organ dysfunction; K86.3 Pseudocyst of pancreas; K86.0 Alcohol-induced chronic pancreatitis; F41.1 Generalized anxiety disorder; D50.9 Iron deficiency anemia, unspecified; F10.10 Alcohol abuse, uncomplicated; F32.9 Major depressive disorder, single episode, unspecified; F43.10 Post-traumatic stress disorder, unspecified; K21.9 Gastro-esophageal reflux disease without esophagitis; F17.290 Nicotine dependence, other tobacco product, uncomplicated; F12.90 Cannabis use, unspecified, uncomplicated; Z79.899 Other long term (current) drug therapy
CPT/HCPCS: 36415; 36430; 76705; 80048; 80053; 80069; 82272; 82607; 82746; 83690; 83735; 84100; 85014; 85018; 85025; 86850; 86900; 86901; 86923; 96374; 96375; 96376; 99285-25; A9270; C9113; J1170; J2270; J2405; J2550; J2765; J2916; J3010; J3411; J3475; J7030; J7042; J7120; P9016

== ENCOUNTER → 2022-12-04 | Outpatient (CLI) | payer OTHER ==
[~2022-12-04] MED LIST changes: +FERSU300 PO; +GABAPENTIN600 MG PO; +OXYC5 PO; +[UNRECOGNIZED DRUG - CODE] PO
[2022-12-04 17:36] LABS: U Amphetamine Screen Not Detected; U Barbituate Screen Not Detected; U Benzodiazapine Screen Not Detected; U Buprenorphine Screen Not Detected; U Cannabinoids Screen DETECTED; U Cocaine Screen Not Detected; U Methadone Screen Not Detected; U Methamphetamine Screen Not Detected; U Opiates Screen Not Detected; U Oxycodone Screen Not Detected; U Phencyclidine Screen Not Detected; U Propoxyphene Screen Not Detected
== END | disposition home or self-care (01) ==
LOC: LAB SHORT 15:11
PROVIDERS: Family Medicine
DX: Z51.81 Encounter for therapeutic drug level monitoring (principal); Z79.899 Other long term (current) drug therapy

== ENCOUNTER → 2023-02-17 | Outpatient (CLI) | payer OTHER ==
[2023-02-18 16:06] LABS: U Amphetamine Screen Not Detected; U Barbituate Screen Not Detected; U Benzodiazapine Screen Not Detected; U Buprenorphine Screen Not Detected; U Cannabinoids Screen DETECTED; U Cocaine Screen Not Detected; U Methadone Screen Not Detected; U Methamphetamine Screen Not Detected; U Opiates Screen Not Detected; U Oxycodone Screen Not Detected; U Phencyclidine Screen Not Detected; U Propoxyphene Screen Not Detected
== END | disposition home or self-care (01) ==
LOC: LAB SHORT 13:52
PROVIDERS: Family Medicine
DX: Z51.81 Encounter for therapeutic drug level monitoring (principal); Z79.891 Long term (current) use of opiate analgesic